=== PATIENT | female | born 1955 | race Caucasian/White ===

== ENCOUNTER 2016-07-23 05:07 | Inpatient (IN) | payer MEDICARE, MEDICAID ==
[2016-07-23] MEDS: Lactated Ringers 1,000 ML IV SCH ×2 (06:48→21:49)
[2016-07-23] MEDS ORDERED: Thrombin (Bovine) 5,000 Unit Kit ONE (07:00)
[2016-07-23] MEDS ORDERED: Bupivacaine 0.5%/EPINEPHrine 1:200,000 50 ML MDV ONE (07:00)
[2016-07-23] MEDS ORDERED: Povidone-Iodine 10% Soln 118.25 ML Bottle ONE (07:00)
[2016-07-23] MEDS ORDERED: fentaNYL 250 MCG/5 ML SDV ONE ×3 (07:20→14:15)
[2016-07-23] MEDS ORDERED: Rocuronium 50 MG/5 ML Vial ONE ×2 (07:21→12:26)
[2016-07-23] MEDS ORDERED: Dexamethasone 4 MG/ML SDV ONE (07:21)
[2016-07-23] MEDS ORDERED: Propofol 200 MG/20 ML SDV ONE (07:21)
[2016-07-23] MEDS ORDERED: Ondansetron 4 MG/2 ML SDV ONE ×2 (07:21→17:48)
[2016-07-23] MEDS ORDERED: Albuterol/Ipratropium 3.0-0.5 MG/3 ML Neb Soln NEB ONE (07:30)
[2016-07-23] MEDS ORDERED: Sodium Chloride 0.9% 10 ML ONE (07:31)
[2016-07-23] MEDS ORDERED: Lactated Ringers 1,000 ML IV SCH (08:00)
[2016-07-23] MEDS ORDERED: Tranexamic Acid 900 MG in Sodium Chloride 0.9% 50 ML IV SCH (08:30)
[2016-07-23] MEDS ORDERED: fentaNYL 100 MCG/2 ML SDV IVPUSH ONE (08:55)
[2016-07-23] MEDS ORDERED: Clindamycin Phosphate 900 MG in Sodium Chloride 0.9% 100 ML IV ONE (09:30)
[2016-07-23] MEDS: Tranexamic Acid 900 MG in Sodium Chloride 0.9% 50 ML IV SCH ×2 (12:00→15:50)
[2016-07-23] MEDS ORDERED: Phenylephrine 1% 10 MG/ML SDV ONE (13:10)
[2016-07-23] MEDS ORDERED: Lactated Ringers 1,000 ML ONE (14:07)
[2016-07-23] MEDS: fentaNYL 100 MCG/2 ML SDV IV PRN ×2 (15:58→16:31)
[2016-07-23] MEDS ORDERED: Naloxone 0.4 MG/ML SDV IVPUSH PRN ×2 (17:24)
[2016-07-23] MEDS ORDERED: diphenhydrAMINE 25 MG Cap PO PRN (17:24)
[2016-07-23] MEDS ORDERED: Magnesium Hydroxide 400 MG/5 ML Susp 30 ML Cup PO PRN ×2 (17:24→17:42)
[2016-07-23] MEDS ORDERED: Ondansetron 4 MG/2 ML SDV IVPUSH PRN (17:24)
[2016-07-23] MEDS ORDERED: Sennosides 8.6 MG Tab PO PRN (17:24)
[2016-07-23] MEDS ORDERED: Sodium Chloride 0.9% 10 ML Syringe FLUSH PRN ×2 (17:24→17:42)
[2016-07-23] MEDS ORDERED: Aluminum Hydroxide/Magnesium Hydroxide/Simethicone Susp 30 ML Cup PO PRN (17:24)
[2016-07-23] MEDS ORDERED: Zolpidem 5 MG Tab PO PRN (17:24)
[2016-07-23] MEDS ORDERED: Cyclobenzaprine 10 MG Tab PO PRN (17:30)
[2016-07-23] MEDS ORDERED: Lactase 9,000 Unit Tab PO PRN (17:30)
[2016-07-23] MEDS ORDERED: Albuterol/Ipratropium 3.0-0.5 MG/3 ML Neb Soln INH PRN (17:30)
[2016-07-23] MEDS ORDERED: Albuterol 8 GM Inhaler INH PRN (17:30)
[2016-07-23] MEDS ORDERED: VALACYCLOVIR 1000 MG PO PRN (17:30)
[2016-07-23] MEDS ORDERED: Albuterol/Ipratropium 4 GM Inhalation Spray INH PRN (17:30)
[2016-07-23] MEDS ORDERED: valACYclovir 1,000 MG Tab PO PRN (17:42)
[2016-07-23] MEDS: Ondansetron 4 MG/2 ML SDV IVPUSH PRN (19:14)
[2016-07-23] MEDS: HYDROmorphone 1 MG/ML Syringe IVPUSH PRN ×3 (19:15→23:29)
[2016-07-23] MEDS: Potassium Chloride 20 MEQ Tab.ER PO SCH (19:33)
[2016-07-23] MEDS ORDERED: Pravastatin 20 MG Tab PO SCH (21:00)
[2016-07-23] MEDS ORDERED: Metoprolol Succinate 25 MG Tab.ER PO SCH (21:00)
[2016-07-23] MEDS ORDERED: Non-Formulary Medication 1 Each (Potassium Chloride [Potassium Chloride] 1 TAB) PO SCH (21:00)
[2016-07-23] MEDS ORDERED: Nitrofurantoin Macrocrystal 50 MG Cap PO SCH (21:00)
[2016-07-23] MEDS ORDERED: Topiramate 25 MG Tab PO SCH (21:00)
[2016-07-23] MEDS ORDERED: Pramipexole 0.5 MG Tab PO SCH (21:00)
[2016-07-23] MEDS ORDERED: NITROFURANTOIN MACROCRYSTAL 100 MG PO SCH (21:00)
[2016-07-23] MEDS ORDERED: LORazepam 2 MG/ML MDV IVPUSH PRN (21:26)
[2016-07-23] MEDS: Triamcinolone Acetonide 0.1% Crm 15 GM Tube TOP SCH (21:52)
--- NOTE | 2016-07-23 22:40 | PCM.SN ---
- Free Text/Narrative Note: Time 2119. Call from 2 N. nursing patient with nausea and vomiting a; nausea and vomiting p; Ativan 1 mg by mouth every 6 when necessary nausea and vomiting. Continue present plan of care
--- NOTE | 2016-07-24 00:04 | OR ---
DATE OF PROCEDURE: 07/23/2016 PREOPERATIVE DIAGNOSES: Cervical stenosis C4-5, C5-6, and C6-7. POSTOPERATIVE DIAGNOSES: Cervical stenosis C4-5, C5-6, and C6-7. PROCEDURE: 1. Anterior cervical diskectomy and fusion. C4-5, C5-6 and C6-7. 2. Allograft placement C4 through C7. 3. Interbody placement at C4-5, C5-6, and C6-7. 4. Anterior cervical instrumentation at C4-5, C5-6, and C6-7. 5. Use of operating microscope. 6. Autograft from disk preparation used in interbody device COST ESTIMATING ENGINEER: AMY Monique. ANESTHESIA: General endotracheal intubation. FLUIDS: Lactated Ringer solution. ESTIMATED BLOOD LOSS: 20 mL. COMPLICATIONS: None. SPECIMEN: None. DISCHARGE DISPOSITION: Stable to PACU. INSTRUMENTATION: Globus three 14 x 16, 7 mm 7 degree implants with 16 mm screws x2 at C4-5, 14 mm screws x2 at C5-6 and 14 mm screws x2 at C6-7. INDICATION FOR THE PROCEDURE: The patient was seen preoperatively in the clinic. She had gone through many years of cervical pain, it was getting worse over the last six months. She was having increasing cervicalgia as well as bilateral radiculopathy and weakness. She tried extensive nonoperative treatment, which failed. Preoperative imaging confirmed the above-mentioned diagnosis. Risks and benefits of the procedure were explained to the patient and informed consent was obtained. DETAILS OF PROCEDURE: The patient was seen preoperatively by myself and the anesthesia staff in the preoperative holding area where the operative site was marked. She was brought to the operative suite by the anesthesia staff where general anesthesia was administered. Sterile Cardenas catheter was placed, which was taken out at the end of the case. Neuro monitoring leads were placed. All extremities were found to be well padded. The arms were tucked at the side. The shoulders were taped. Neuro monitoring leads were normal at baseline and normal throughout the case. The C-arm was brought in to ensure visualization prior to prepping and draping. The C-arm was then brought up, C-arm was draped sterilely, operating microscope was draped sterilely and the patient was then prepped and draped in a sterile manner. Time-out was called identifying the correct patient, the correct procedure, the correct site, and antibiotics were begun with an appropriate period of time. Lateral fluoroscopy was used to visualize the C6-7 level. An oblique incision was made medial to the sternocleidomastoid starting approximately at the C6 vertebral body and angling down over the C6-7 disk interspace just lateral to the vertebral body. This was carried down to the platysma. Bleeding was controlled with Bovie electrocautery and bipolar electrocautery. Weitlaner retractors were used. Sharp and blunt dissection were used to enter the prevertebral space. A Cloward retractor was used for traction, the C6-7 space was confirmed on lateral fluoroscopy. The soft tissues in the prevertebral space were then Bovie clear as well as releasing of the longus colli. The 40 mm retractors were used with the Shadow-Line cervical or tractor C6-7 was then confirmed again on fluoroscopy. I then removed any anterior osteophytes and then opened the disk space slightly with high-speed drill. I then used a 3.0 angled curette to remove any disk material as close as I could down to the level of the posterior vertebral lip. All disk spaces were collapsed. I did this and then I placed thrombin-soaked Gelfoam. I did this at every disk space releasing the mean. A Shadow-Line retractor was placed and the Cloward then replacing the Shadow-Line retractors. After this completed at C6-7, C5-6, and C4-5, I then went back down to the C6-7 level and then removed my operating loops and used the operating microscope. Under visualization with the operating microscope, I then used an intervertebral retractor to spread the intervertebral space and then using a high-speed drill, removed the posterior osteophytes off the vertebral body to the level of the PLL. The PLL was then released by using a three ring curette on the posterior aspect of the inferior vertebral body where it attaches and then I went out and repeated this on the opposite side of the intervertebral retractor, going back and forth until it was completely freed. I then used a 3-0 angled curette to go out from the foramina and then sweep laterally and then superiorly and then placed a nerve hook to confirm the foramina was open. I then placed a small amount of thrombin -soaked Gelfoam posteriorly to control any epidural bleeders. I then trialed with a 5, 6 and 7 implant. At the C6-7 level, I used a 0 degree, but at the C5-6 and C4-5 levels , I used a 7 degree implant. I placed my implant and then placed the screws. I repeated this at the C5- 6 and the C4-5 level using the operating microscope. I took final films to confirm good placement of all implants and screws. After that was done, I then copiously irrigated with Betadine infused irrigation. I then using an operating microscope made sure there were no extra bleeders. I did bipolar the medial aspect of the more inferior longus colli muscles I then applied FloSeal and allowed it to sit for 2 minutes and then swept the rest off with a damp Ray-Jeanie. I then inserted my drain in the prevertebral space carrying out the lateral aspect of the bone. I then closed the platysma with three 2-0 Vicryl sutures followed by 3- 0 Monocryl, followed by Steri-Strips and a sterile dressing with an OpSite. The patient was allowed to awaken from anesthesia. The Cardenas catheter was removed. Neuro monitoring leads were normal at the end of the procedure and removed and the patient was transferred to a hospital bed and taken to PACU in stable condition. Pascual Nieto DO /[id number] MTDD
[2016-07-24] MEDS: Ondansetron 4 MG/2 ML SDV IVPUSH PRN ×2 (00:21→09:33)
[2016-07-24] MEDS: Acetaminophen/oxyCODONE 325-5 MG Tab PO PRN ×4 (01:13→13:38)
[2016-07-24] MEDS ORDERED: Metoprolol Succinate 25 MG Tab.ER PO ONE (03:00)
[2016-07-24] MEDS: Hydrochlorothiazide 25 MG Tab PO SCH ×2 (05:00→08:53)
[2016-07-24] MEDS: Lisinopril 20 MG Tab PO SCH ×2 (05:00→08:53)
[2016-07-24] MEDS ORDERED: Bupivacaine 0.5% 30 ML SDV ONE (07:12)
[2016-07-24] MEDS ORDERED: Pantoprazole 40 MG Tab.CR PO SCH (07:30)
[2016-07-24] MEDS: Triamcinolone Acetonide 0.1% Crm 15 GM Tube TOP SCH ×2 (08:54→16:19)
[2016-07-24] MEDS: Potassium Chloride 20 MEQ Tab.ER PO SCH (08:59)
[2016-07-24] MEDS ORDERED: PRAVASTATIN SODIUM 40 MG PO SCH (09:00)
[2016-07-24 11:06] VITALS: BP 139/98
--- NOTE | 2016-07-24 13:47 | PCM.DCSUM1 ---
Discharge Summary - Hospital Course Free Text/Narrative:: Makayla is a 60 year old female who is POD 1 from a cervical neck fusion of L4- L5, L5-L6, L6-L7. She is doing well. Pain is controlled. Drain was pulled with minimal drainage. She is ambulating well. BP is controlled. She is otherwise good. - Discharge Data Discharge Date: 07/24/16 Discharge Disposition: Home, Self-Care 01 Condition: Good - Patient Summary/Data Consults: Consultations 07/23/16 17:25 OT Evaluation and Treatment [CONS] Routine Please Evaluate and Treat. OT Reason for Consult: Strengthening This query below is only for informational purposes and is not editable. PT Evaluation and Treatment [CONS] Routine Please Evaluate and Treat. PT Reason for Consult: Strengthening This query below is only for informational purposes and is not editable. Recommended Follow-up Testing/Procedures: She is to follow up with Ortho in 2 weeks. - Patient Instructions Diet: Heart Healthy Diet, Usual Diet as Tolerated Activity: Apply Ice, As Tolerated, Cough & Deep Breathe, No Lifting Over 10 Pounds Driving: Do Not Drive Showering/Bathing: May Shower Wound/Incision Care: Keep Operative Site/Wound Site Clean and Dry, Change Dressing Daily Notify Provider of: Fever, Increased Pain, Swelling and Redness, Drainage - Discharge Plan Prescriptions/Med Rec: Acetaminophen/oxyCODONE [Percocet 325-5 MG] 2 tab PO Q4H PRN #90 tablet PRN Reason: Pain Sennosides [Senna] 8.6 mg PO DAILY #90 tablet Home Medications: Home Meds Albuterol [Ventolin HFA] 2 puff INH QID PRN 06/27/16 [History] Albuterol/Ipratropium [Combivent Respimat] 1 inh INH QID PRN 06/27/16 [History] Albuterol/Ipratropium [DuoNeb 3.0-0.5 MG/3 ML] 1 inh INH Q6H PRN 06/27/16 [ History] Cholecalciferol (Vitamin D3) [Vitamin D3] 1 cap PO DAILY 06/27/16 [History] Cyclobenzaprine [Flexeril] 1 tab PO TID PRN MDD 3 06/27/16 [History] Lactase [Lactase Fast Acting] 1 tab PO Q4HWA PRN 06/27/16 [History] Lisinopril/Hydrochlorothiazide [Lisinopril-Hctz 20-25 mg Tab] 1 tab PO DAILY 07/12 [History] Metoprolol Succinate [Toprol XL] 1 tab PO BEDTIME 06/27/16 [History] Pantoprazole [Protonix] 1 tab PO DAILY 06/27/16 [History] Potassium Chloride 1 tab PO BID 06/27/16 [History] Topiramate [Topamax] 1 tab PO BEDTIME 06/27/16 [History] Triamcinolone Acetonide [Kenalog 0.1% Crm] 1 applic TOP TID 06/27/16 [History] Varenicline [Chantix] 1 tab PO BID 06/27/16 [History] diphenhydrAMINE HCl [Benadryl] 25 - 50 mg PO QID PRN 06/27/16 [History] valACYclovir [Valtrex] 1,000 mg PO DAILY PRN 06/27/16 [History] ALPRAZolam [Alprazolam] 0.5 - 1 mg PO TID PRN 07/22/16 [History] Nitrofurantoin Macrocrystal [Macrodantin] 100 mg PO BID 07/22/16 [History] Pravastatin Sodium [Pravastatin (Pravachol)] 40 mg PO DAILY 07/22/16 [History] traMADol [Ultram] 50 mg PO Q4HR PRN 07/23/16 [History] Acetaminophen/oxyCODONE [Percocet 325-5 MG] 2 tab PO Q4H PRN #90 tablet [Rx] Sennosides [Senna] 8.6 mg PO DAILY #90 tablet 07/24/16 [Rx] Referrals: Pascual Nieto DO [Physician] - (She needs to follow up in 2 weeks with ortho. ) - Patient Data Vitals - Most Recent: Last Vital Signs Temp 37.1 C 07/24/16 11:05 Pulse 103 H 07/24/16 11:05 Resp 16 07/24/16 11:05 BP 139/98 H 07/24/16 11:05 Pulse Ox 92 L 07/24/16 13:00 Weight - Most Recent: 203 lb 2.989 oz I&O - Last 24 hours: Intake & Output 02/28/17 03/01/17 03/01/17 22:59 06:59 14:59 Intake Total 1050 1340 Output Total 1466 670 Balance -415 670 Med Orders - Current: Current Medications Al Hydroxide/Mg Hydroxide (Mag-Al Plus) 30 ml PO Q4H PRN PRN Reason: Indigestion Albuterol (Ventolin Hfa) 0 gm INH QID PRN PRN Reason: Shortness of Breath Albuterol/Ipratropium (Combivent Respimat) 0 gm INH QID PRN PRN Reason: Shortness of Breath Albuterol/Ipratropium (Duoneb 3.0-0.5 Mg/3 Ml) 3 ml INH Q6H PRN PRN Reason: Shortness of Breath Cyclobenzaprine HCl (Flexeril) 10 mg PO TID PRN PRN Reason: Spasms Last Admin: 07/24/16 11:46 Dose: 10 mg Diazepam (Valium) 5 mg IVPUSH Q6H PRN PRN Reason: Spasms Diphenhydramine HCl (Benadryl) 25 mg PO Q4H PRN PRN Reason: Itching Hydrochlorothiazide (Hydrochlorothiazide) 25 mg PO DAILY [facility] Last Admin: 07/24/16 08:53 Dose: Not Given Hydromorphone HCl (Dilaudid) 1 mg IVPUSH Q2H PRN PRN Reason: Pain Last Admin: 07/23/16 23:29 Dose: 1 mg Lactated Ringer's (Ringers, Lactated) 1,000 mls @ 100 mls/hr IV ASDIRECTED [facility] Last Admin: 07/23/16 21:49 Dose: 100 mls/hr Lactase (Lactaid Fast Act) 1 unit PO Q4HWA PRN PRN Reason: gas bloating Lisinopril (Prinivil) 20 mg PO DAILY [facility] Last Admin: 07/24/16 08:53 Dose: Not Given Lorazepam (Ativan) 0.5 - 1 mg IVPUSH Q6H PRN PRN Reason: Nausea Last Admin: 07/23/16 21:48 Dose: 0.5 mg Magnesium Hydroxide (Milk Of Magnesia) 30 ml PO BID PRN PRN Reason: Constipation Last Admin: 07/24/16 09:00 Dose: 30 ml Metoprolol Succinate (Toprol Xl) 25 mg PO BEDTIME [facility] Last Admin: 07/23/16 22:11 Dose: Not Given Ondansetron HCl (Zofran) 8 mg IVPUSH Q4H PRN PRN Reason: Nausea/Vomiting Last Admin: 07/24/16 09:33 Dose: 8 mg Oxycodone/Acetaminophen (Percocet 325-5 Mg) 2 tab PO Q4H PRN PRN Reason: Pain Last Admin: 07/24/16 13:38 Dose: 2 tab Pantoprazole Sodium (Protonix) 40 mg PO DAILY@0730 [facility] Last Admin: 07/24/16 08:56 Dose: 40 mg Potassium Chloride (Klor-Con M20) 20 meq PO BIDMEALS [facility] Last Admin: 07/24/16 08:59 Dose: 20 meq Pramipexole Dihydrochloride (Mirapex) 0.5 mg PO BEDTIME [facility] Last Admin: 07/23/16 22:12 Dose: Not Given Pravastatin Sodium (Pravachol) 40 mg PO BEDTIME [facility] Last Admin: 07/23/16 22:12 Dose: Not Given Senna (Senna) 8.6 mg PO BID PRN PRN Reason: Constipation Sodium Chloride (Saline Flush) 10 ml FLUSH ASDIRECTED PRN PRN Reason: Keep Vein Open Topiramate (Topamax) 25 mg PO BEDTIME [facility] Last Admin: 07/23/16 22:11 Dose: Not Given Triamcinolone Acetonide (Triamcinolone Acetonide 0.1% Crm) 0 gm TOP TID [facility] Last Admin: 07/24/16 08:54 Dose: Not Given Valacyclovir HCl (Valtrex) 1,000 mg PO DAILY PRN PRN Reason: herpes outbreak Varenicline (Chantix) 1 mg PO BIDMEALS [facility] Last Admin: 07/24/16 08:59 Dose: 1 mg Zolpidem Tartrate (Ambien) 5 mg PO BEDTIME PRN PRN Reason: Sleep Discontinued Medications Albuterol/Ipratropium (Duoneb 3.0-0.5 Mg/3 Ml) 3 ml NEB ONETIME ONE Stop: 07/23/16 07:31 Last Admin: 07/23/16 07:22 Dose: 3 ml Bupivacaine HCl (Marcaine 0.5%) Confirm Administered Dose 30 ml .ROUTE .STK-MED ONE Stop: 07/24/16 07:13 Bupivacaine HCl/Epinephrine Bitart (Marcaine 0.5%/Epinephrine 1:200,000) Confirm Administered Dose 50 ml .ROUTE .STK-MED ONE Stop: 07/23/16 07:01 Dexamethasone (Dexamethasone) Confirm Administered Dose 4 mg .ROUTE .STK-MED ONE Stop: 07/23/16 07:22 Diazepam (Valium) 5 mg IVPUSH ONETIME ONE Stop: 07/23/16 16:11 Last Admin: 07/23/16 16:21 Dose: 5 mg Fentanyl (Sublimaze) Confirm Administered Dose 250 mcg .ROUTE .STK-MED ONE Stop: 07/23/16 07:21 Fentanyl (Sublimaze) 50 mcg IVPUSH ONETIME ONE Stop: 07/23/16 08:56 Last Admin: 07/23/16 08:58 Dose: 50 mcg Fentanyl (Sublimaze) Confirm Administered Dose 250 mcg .ROUTE .ST-MED ONE Stop: 07/23/16 12:48 Fentanyl (Sublimaze) Confirm Administered Dose 250 mcg .ROUTE .ST-MED ONE Stop: 07/23/16 14:16 Fentanyl (Sublimaze) 50 - 100 mcg IV ASDIRECTED PRN PRN Reason: PAIN Stop: 07/23/16 16:30 Last Admin: 07/23/16 16:31 Dose: 50 mcg Clindamycin Phosphate 900 mg/ (Sodium Chloride) 106 mls @ 200 mls/hr IV ONETIME ONE Stop: 07/23/16 10:01 Last Admin: 07/23/16 11:44 Dose: 200 mls/hr Lactated Ringer's (Ringers, Lactated) 1,000 mls @ 100 mls/hr IV ASDIRECTED ANITA Sodium Chloride (Normal Saline) Confirm Administered Dose 10 mls @ as directed .ROUTE .STK-MED ONE Stop: 07/23/16 07:32 Tranexamic Acid 900 mg/ Sodium (Chloride) 59 mls @ 236 mls/hr IV Q3H [facility]ITA Stop: 07/23/16 14:44 Last Admin: 07/23/16 15:50 Dose: 236 mls/hr Lactated Ringer's (Ringers, Lactated) Confirm Administered Dose 1,000 mls @ as directed .ROUTE .STK-MED ONE Stop: 07/23/16 14:08 Clindamycin Phosphate 600 mg/ (Sodium Chloride) 54 mls @ 100 mls/hr IV Q8H ANITA Stop: 07/24/16 04:33 Last Admin: 07/24/16 03:26 Dose: 100 mls/hr Magnesium Hydroxide (Milk Of Magnesia) 30 ml PO BID PRN PRN Reason: Constipation Metoprolol Succinate (Toprol Xl) 25 mg PO ONETIME ONE Stop: 07/24/16 03:01 Last Admin: 07/24/16 03:24 Dose: 25 mg Naloxone HCl (Narcan) 0.2 mg IVPUSH ONETIME PRN PRN Reason: Oversedation Stop: 07/23/16 17:25 Naloxone HCl (Narcan) 0.2 mg IVPUSH ONETIME PRN PRN Reason: Oversedation Stop: 07/23/16 17:25 Nitrofurantoin Macrocrystals (Macrodantin) 100 mg PO BID [facility] Non-Formulary Medication (Lisinopril/Hydrochlorothiazide [Lisinopril-Hctz 20-25 Mg Tab]) 1 tab PO DAILY [facility] Non-Formulary Medication (Nitrofurantoin Macrocrystal [Macrodantin]) 100 mg PO BID [facility] Non-Formulary Medication (Potassium Chloride [Potassium Chloride]) 1 tab PO BID [facility] Non-Formulary Medication (Pravastatin Sodium [Pravastatin (Pravachol)]) 40 mg PO DAILY [facility] Non-Formulary Medication (Valacyclovir [Valtrex]) 1,000 mg PO DAILY PRN PRN Reason: herpes outbreak Ondansetron HCl (Zofran) Confirm Administered Dose 4 mg .ROUTE .STK-MED ONE Stop: 07/23/16 07:22 Ondansetron HCl (Zofran) 8 mg IVPUSH Q4H PRN PRN Reason: Nausea/Vomiting Ondansetron HCl (Zofran) Confirm Administered Dose 4 mg .ROUTE .STK-MED ONE Stop: 07/23/16 17:49 Last Admin: 07/23/16 17:54 Dose: 4 mg Phenylephrine HCl (Valentin-Synephrine) Confirm Administered Dose 10 mg .ROUTE .STK- MED ONE Stop: 07/23/16 13:11 Povidone Iodine (Betadine 10% Soln) Confirm Administered Dose 1 ml .ROUTE .STK- MED ONE Stop: 07/23/16 07:01 Propofol (Diprivan 20 Ml) Confirm Administered Dose 200 mg .ROUTE .STK-MED ONE Stop: 07/23/16 07:22 Rocuronium [place] (Zemuron) Confirm Administered Dose 50 mg .ROUTE .STK-MED ONE Stop: 07/23/16 07:22 Rocuronium [place] (Zemuron) Confirm Administered Dose 50 mg .ROUTE .STK-MED ONE Stop: 07/23/16 12:27 Sodium Chloride (Saline Flush) 10 ml FLUSH ASDIRECTED PRN PRN Reason: Keep Vein Open Thrombin (Thrombin-Jmi) Confirm Administered Dose 10,000 unit .ROUTE .STK-MED ONE Stop: 07/23/16 07:01 Last Admin: 07/23/16 11:50 Dose: 10,000 unit *Q Meaningful Use (DIS) - VTE *Q VTE Criteria *Q: - Stroke *Q Stroke Criteria *Q: - AMI *Q AMI Criteria *Q:
--- NOTE | 2016-07-24 16:06 | PCM.PN ---
- General Info Date of Service: 07/24/16 Functional Status: Reports: pain controlled, tolerating diet, ambulating - Review of Systems General: Denies: weakness Systems Review Comment:: patient had trouble with moderate blood pressure elevation overnight with systolic blood pressure of 170 and diastolic pressures greater than 100. mild headache at that time. blood pressures have trended down and she's feeling much better today. She has minimal pain from her surgery. No numbness or tingling in her arms. She feels much better this morning. - Patient Data Vitals - most recent: Last Vital Signs Temp 37.1 C 07/24/16 11:05 Pulse 103 H 07/24/16 11:05 Resp 16 07/24/16 11:05 BP 139/98 H 07/24/16 11:05 Pulse Ox 92 L 07/24/16 13:00 Weight - most recent: 92.164 kg I&O - last 24 hours: Intake & Output 07/24/16 07/24/16 07/24/16 06:59 14:59 22:59 Intake Total 1340 2587 Output Total 670 2550 Balance 670 37 Med Orders - Current: Current Medications Al Hydroxide/Mg Hydroxide (Mag-Al Plus) 30 ml PO Q4H PRN PRN Reason: Indigestion Albuterol (Ventolin Hfa) 0 gm INH QID PRN PRN Reason: Shortness of Breath Albuterol/Ipratropium (Combivent Respimat) 0 gm INH QID PRN PRN Reason: Shortness of Breath Albuterol/Ipratropium (Duoneb 3.0-0.5 Mg/3 Ml) 3 ml INH Q6H PRN PRN Reason: Shortness of Breath Cyclobenzaprine HCl (Flexeril) 10 mg PO TID PRN PRN Reason: Spasms Last Admin: 07/24/16 11:46 Dose: 10 mg Diazepam (Valium) 5 mg IVPUSH Q6H PRN PRN Reason: Spasms Diphenhydramine HCl (Benadryl) 25 mg PO Q4H PRN PRN Reason: Itching Hydrochlorothiazide (Hydrochlorothiazide) 25 mg PO DAILY [facility] Last Admin: 07/24/16 08:53 Dose: Not Given Hydromorphone HCl (Dilaudid) 1 mg IVPUSH Q2H PRN PRN Reason: Pain Last Admin: 07/23/16 23:29 Dose: 1 mg Lactated Ringer's (Ringers, Lactated) 1,000 mls @ 100 mls/hr IV ASDIRECTED [facility] Last Admin: 07/23/16 21:49 Dose: 100 mls/hr Lactase (Lactaid Fast Act) 1 unit PO Q4HWA PRN PRN Reason: gas bloating Lisinopril (Prinivil) 20 mg PO DAILY [facility] Last Admin: 07/24/16 08:53 Dose: Not Given Lorazepam (Ativan) 0.5 - 1 mg IVPUSH Q6H PRN PRN Reason: Nausea Last Admin: 07/23/16 21:48 Dose: 0.5 mg Magnesium Hydroxide (Milk Of Magnesia) 30 ml PO BID PRN PRN Reason: Constipation Last Admin: 07/24/16 09:00 Dose: 30 ml Metoprolol Succinate (Toprol Xl) 25 mg PO BEDTIME [facility] Last Admin: 07/23/16 22:11 Dose: Not Given Ondansetron HCl (Zofran) 8 mg IVPUSH Q4H PRN PRN Reason: Nausea/Vomiting Last Admin: 07/24/16 09:33 Dose: 8 mg Oxycodone/Acetaminophen (Percocet 325-5 Mg) 2 tab PO Q4H PRN PRN Reason: Pain Last Admin: 07/24/16 13:38 Dose: 2 tab Pantoprazole Sodium (Protonix) 40 mg PO DAILY@0730 [facility] Last Admin: 07/24/16 08:56 Dose: 40 mg Potassium Chloride (Klor-Con M20) 20 meq PO BIDMEALS [facility] Last Admin: 07/24/16 08:59 Dose: 20 meq Pramipexole Dihydrochloride (Mirapex) 0.5 mg PO BEDTIME [facility] Last Admin: 07/23/16 22:12 Dose: Not Given Pravastatin Sodium (Pravachol) 40 mg PO BEDTIME [facility] Last Admin: 07/23/16 22:12 Dose: Not Given Senna (Senna) 8.6 mg PO BID PRN PRN Reason: Constipation Sodium Chloride (Saline Flush) 10 ml FLUSH ASDIRECTED PRN PRN Reason: Keep Vein Open Topiramate (Topamax) 25 mg PO BEDTIME [facility] Last Admin: 07/23/16 22:11 Dose: Not Given Triamcinolone Acetonide (Triamcinolone Acetonide 0.1% Crm) 0 gm TOP TID [facility] Last Admin: 07/24/16 08:54 Dose: Not Given Valacyclovir HCl (Valtrex) 1,000 mg PO DAILY PRN PRN Reason: herpes outbreak Varenicline (Chantix) 1 mg PO BIDMEALS [facility] Last Admin: 07/24/16 08:59 Dose: 1 mg Zolpidem Tartrate (Ambien) 5 mg PO BEDTIME PRN PRN Reason: Sleep Discontinued Medications Albuterol/Ipratropium (Duoneb 3.0-0.5 Mg/3 Ml) 3 ml NEB ONETIME ONE Stop: 07/23/16 07:31 Last Admin: 07/23/16 07:22 Dose: 3 ml Bupivacaine HCl (Marcaine 0.5%) Confirm Administered Dose 30 ml .ROUTE .STK-MED ONE Stop: 07/24/16 07:13 Bupivacaine HCl/Epinephrine Bitart (Marcaine 0.5%/Epinephrine 1:200,000) Confirm Administered Dose 50 ml .ROUTE .STK-MED ONE Stop: 07/23/16 07:01 Dexamethasone (Dexamethasone) Confirm Administered Dose 4 mg .ROUTE .STK-MED ONE Stop: 07/23/16 07:22 Diazepam (Valium) 5 mg IVPUSH ONETIME ONE Stop: 07/23/16 16:11 Last Admin: 07/23/16 16:21 Dose: 5 mg Fentanyl (Sublimaze) Confirm Administered Dose 250 mcg .ROUTE .STK-MED ONE Stop: 07/23/16 07:21 Fentanyl (Sublimaze) 50 mcg IVPUSH ONETIME ONE Stop: 07/23/16 08:56 Last Admin: 07/23/16 08:58 Dose: 50 mcg Fentanyl (Sublimaze) Confirm Administered Dose 250 mcg .ROUTE .STK-MED ONE Stop: 07/23/16 12:48 Fentanyl (Sublimaze) Confirm Administered Dose 250 mcg .ROUTE .STK-MED ONE Stop: 07/23/16 14:16 Fentanyl (Sublimaze) 50 - 100 mcg IV ASDIRECTED PRN PRN Reason: PAIN Stop: 07/23/16 16:30 Last Admin: 07/23/16 16:31 Dose: 50 mcg Clindamycin Phosphate 900 mg/ (Sodium Chloride) 106 mls @ 200 mls/hr IV ONETIME ONE Stop: 07/23/16 10:01 Last Admin: 07/23/16 11:44 Dose: 200 mls/hr Lactated Ringer's (Ringers, Lactated) 1,000 mls @ 100 mls/hr IV ASDIRECTED [facility] Sodium Chloride (Normal Saline) Confirm Administered Dose 10 mls @ as directed .ROUTE .[facility] ONE Stop: 07/23/16 07:32 Tranexamic Acid 900 mg/ Sodium (Chloride) 59 mls @ 236 mls/hr IV Q3H [facility] Stop: 07/23/16 14:44 Last Admin: 07/23/16 15:50 Dose: 236 mls/hr Lactated Ringer's (Ringers, Lactated) Confirm Administered Dose 1,000 mls @ as directed .ROUTE .[facility] ONE Stop: 07/23/16 14:08 Clindamycin Phosphate 600 mg/ (Sodium Chloride) 54 mls @ 100 mls/hr IV Q8H [facility] Stop: 07/24/16 04:33 Last Admin: 07/24/16 03:26 Dose: 100 mls/hr Magnesium Hydroxide (Milk Of Magnesia) 30 ml PO BID PRN PRN Reason: Constipation Metoprolol Succinate (Toprol Xl) 25 mg PO ONETIME ONE Stop: 07/24/16 03:01 Last Admin: 07/24/16 03:24 Dose: 25 mg Naloxone HCl (Narcan) 0.2 mg IVPUSH ONETIME PRN PRN Reason: Oversedation Stop: 07/23/16 17:25 Naloxone HCl (Narcan) 0.2 mg IVPUSH ONETIME PRN PRN Reason: Oversedation Stop: 07/23/16 17:25 Nitrofurantoin Macrocrystals (Macrodantin) 100 mg PO BID [facility] Non-Formulary Medication (Lisinopril/Hydrochlorothiazide [Lisinopril-Hctz 20-25 Mg Tab]) 1 tab PO DAILY [facility] Non-Formulary Medication (Nitrofurantoin Macrocrystal [Macrodantin]) 100 mg PO BID [facility] Non-Formulary Medication (Potassium Chloride [Potassium Chloride]) 1 tab PO BID [facility] Non-Formulary Medication (Pravastatin Sodium [Pravastatin (Pravachol)]) 40 mg PO DAILY [facility] Non-Formulary Medication (Valacyclovir [Valtrex]) 1,000 mg PO DAILY PRN PRN Reason: herpes outbreak Ondansetron HCl (Zofran) Confirm Administered Dose 4 mg .ROUTE .STK-MED ONE Stop: 07/23/16 07:22 Ondansetron HCl (Zofran) 8 mg IVPUSH Q4H PRN PRN Reason: Nausea/Vomiting Ondansetron HCl (Zofran) Confirm Administered Dose 4 mg .ROUTE .STK-MED ONE Stop: 07/23/16 17:49 Last Admin: 07/23/16 17:54 Dose: 4 mg Phenylephrine HCl (Valentin-Synephrine) Confirm Administered Dose 10 mg .ROUTE .STK- MED ONE Stop: 07/23/16 13:11 Povidone Iodine (Betadine 10% Soln) Confirm Administered Dose 1 ml .ROUTE .STK- MED ONE Stop: 07/23/16 07:01 Propofol (Diprivan 20 Ml) Confirm Administered Dose 200 mg .ROUTE .STK-MED ONE Stop: 07/23/16 07:22 Rocuronium [place] (Zemuron) Confirm Administered Dose 50 mg .ROUTE .STK-MED ONE Stop: 07/23/16 07:22 Rocuronium [place] (Zemuron) Confirm Administered Dose 50 mg .ROUTE .STK-MED ONE Stop: 07/23/16 12:27 Sodium Chloride (Saline Flush) 10 ml FLUSH ASDIRECTED PRN PRN Reason: Keep Vein Open Thrombin (Thrombin-Jmi) Confirm Administered Dose 10,000 unit .ROUTE .STK-MED ONE Stop: 07/23/16 07:01 Last Admin: 07/23/16 11:50 Dose: 10,000 unit - Exam Quality Assessment: No: supplemental oxygen General: alert, oriented, cooperative, no acute distress HEENT: Other (dry intact surgical dressing right anterior lateral neck) Lungs: Clear to auscultation, Normal respiratory effort Cardiovascular: regular rate, regular rhythm Extremities: no edema Peripheral Pulses: 2+: radial (L), radial (R), dorsalis pedis (L), dorsalis pedis (R) Wound/Incisions: dressing dry and intact, no drainage Psy/Mental Status: alert, normal affect - Problem List & Annotations (1) Essential hypertension SNOMED Code(s): 16067033 Code(s): I10 - ESSENTIAL (PRIMARY) HYPERTENSION Status: Acute Current Visit: Yes - Problem List Review Problem List Initiated/Reviewed/Updated: Yes - Plan Plan:: ASSESSMENT AND PLAN - Cervical spinal stenosis status post fusion and discectomy - clinically doing quite well. -Postop cares per surgical team Essential hypertension - Some elevation of blood pressures overnight but they are trending down at this time. Clinically patient is doing well. -Continue all medications Jeffery Hare M.D.
== END 2016-07-24 14:00 | disposition home or self-care (01) | DRG 473 ==
LOC: JP.SDS 05:07 → JP.MS 05:07 → EDSTATUS 09:30 → JP.MS 15:00
PROVIDERS: ADMIT Orthopaedic Surgery; ATTEND Orthopaedic Surgery
PROC: 0PH304Z Insertion of Internal Fixation Device into Cervical Vertebra, Open Approach (ICD-10-PCS; principal; 2016-07-23)
PROC: 0RG2070 Fusion of 2 or more Cervical Vertebral Joints with Autologous Tissue Substitute, Anterior Approach, Anterior Column, Open Approach (ICD-10-PCS; principal; 2016-07-23)
PROC: 0RG20K0 Fusion of 2 or more Cervical Vertebral Joints with Nonautologous Tissue Substitute, Anterior Approach, Anterior Column, Open Approach (ICD-10-PCS; principal; 2016-07-23)
PROC: 0RG20A0 Fusion of 2 or more Cervical Vertebral Joints with Interbody Fusion Device, Anterior Approach, Anterior Column, Open Approach (ICD-10-PCS; principal; 2016-07-23)
PROC: 0RB30ZZ Excision of Cervical Vertebral Disc, Open Approach (ICD-10-PCS; principal; 2016-07-23)
DX: M48.02 Spinal stenosis, cervical region (principal); I10 Essential (primary) hypertension; G89.4 Chronic pain syndrome; M79.7 Fibromyalgia; G47.33 Obstructive sleep apnea (adult) (pediatric); K21.9 Gastro-esophageal reflux disease without esophagitis; K44.9 Diaphragmatic hernia without obstruction or gangrene; J44.9 Chronic obstructive pulmonary disease, unspecified; E78.5 Hyperlipidemia, unspecified; F41.9 Anxiety disorder, unspecified; Z87.891 Personal history of nicotine dependence; K59.09 Other constipation; R33.9 Retention of urine, unspecified; Z87.820 Personal history of traumatic brain injury; Z79.891 Long term (current) use of opiate analgesic; Z79.899 Other long term (current) drug therapy; Z51.81 Encounter for therapeutic drug level monitoring; Z88.6 Allergy status to analgesic agent; Z91.030 Bee allergy status; Z91.040 Latex allergy status; Z88.5 Allergy status to narcotic agent; Z88.0 Allergy status to penicillin; Z91.048 Other nonmedicinal substance allergy status
CPT/HCPCS: 36415; 76001; 86850; 86900; 86901; 94762; 97162-GP; 97166-GO; 97530-GP; 97535-GP; A9270-GY; C1713; J1100; J1170; J2060; J2370; J2405; J2704; J3010; J3360; J7030; J7050; J7120; J7620; S0077

== ENCOUNTER 2017-09-23 14:27 | Emergency (ER) | payer MEDICARE, MEDICAID ==
[2017-09-23] MEDS ORDERED: Sodium Chloride 0.9% 10 ML Syringe FLUSH PRN (15:32)
[2017-09-23] MEDS ORDERED: methylPREDNISolone Sodium Succinate 125 MG/2 ML SDV IVPUSH ONE (15:33)
--- NOTE | 2017-09-23 15:34 | EDM.PDOC ---
ED HPI GENERAL MEDICAL PROBLEM - General Chief Complaint: Respiratory Problem Stated Complaint: COPD/ASTHMA SOB Time Seen by Provider: 09/23/17 15:34 Source of Information: Reports: Patient History Limitations: Reports: No Limitations - History of Present Illness INITIAL COMMENTS - FREE TEXT/NARRATIVE: pt has been ill for the past 4-5 days, She is very wheezy. Her nebulizer treatmnts do not hlp and she is increasely sob. Onset: Gradual, Other ( several days. ) Duration: Day(s): Location: Reports: Chest Associated Symptoms: Reports: Shortness of Breath Shoulder Pain Score (Numeric/FACES): 8 - Related Data Allergies Allergy/AdvReac Type Severity Reaction Status Date / Time Latex, Natural Rubber Allergy Severe Anaphylactic Verified 09/23/17 14:59 Shock Penicillins Allergy Severe double Verified 09/23/17 14:59 vision adhesive tape Allergy Itching Verified 09/23/17 14:59 aspirin Allergy Rash Verified 09/23/17 14:59 azithromycin Allergy Hives Verified 09/23/17 14:59 codeine Allergy Other Verified 09/23/17 14:59 wasp venom Allergy Severe Anaphylactic Uncoded 09/23/17 14:59 Shock perfumes Allergy Bronchospas Uncoded 09/23/17 14:59 ms Home Meds: Home Meds Albuterol/Ipratropium [Combivent Respimat] 1 inh INH QID PRN 06/27/16 [History] Albuterol/Ipratropium [DuoNeb 3.0-0.5 MG/3 ML] 1 inh INH Q6H PRN 06/27/16 [ History] Cholecalciferol (Vitamin D3) [Vitamin D3] 1 cap PO DAILY 06/27/16 [History] Lisinopril/Hydrochlorothiazide [Lisinopril-Hctz 20-25 mg Tab] 1 tab PO DAILY 07/12 [History] Metoprolol Succinate [Toprol XL] 25 mg PO BEDTIME 06/27/16 [History] Pantoprazole [ProTONIX] 1 tab PO DAILY 06/27/16 [History] Potassium Chloride 1 tab PO BID 06/27/16 [History] Topiramate [Topamax] 1 tab PO BEDTIME 06/27/16 [History] Triamcinolone Acetonide [Kenalog 0.1% Crm] 1 applic TOP TID 06/27/16 [History] Varenicline [Chantix] 1 tab PO BID 06/27/16 [History] diphenhydrAMINE HCl [Benadryl] 25 - 50 mg PO QID PRN 06/27/16 [History] valACYclovir [Valtrex] 1,000 mg PO DAILY PRN 06/27/16 [History] Nitrofurantoin Macrocrystal [Macrodantin] 100 mg PO BID PRN 07/22/16 [History] Pravastatin Sodium [Pravastatin (Pravachol)] 40 mg PO DAILY 07/22/16 [History] Sennosides [Senna] 8.6 mg PO DAILY #90 tablet 07/24/16 [Rx] ALPRAZolam [Alprazolam] 0.5 mg PO BEDTIME 09/23/17 [History] Albuterol [Ventolin HFA] 1 - 2 puff INH Q4HR 09/23/17 [History] Aspirin 325 mg PO DAILY 09/23/17 [History] Calcium Carbonate/Vitamin D3 [Calcium 600 + Vit D 200] 1 each PO DAILY 09/23/17 [History] Diclofenac Sodium [Voltaren] 75 mg PO BIDMEALS 09/23/17 [History] Fluticasone/Salmeterol [Advair 100-50] 1 puff INH BID 09/23/17 [History] Gabapentin [Neurontin] 300 mg PO TID 09/23/17 [History] Lidocaine [Aspercreme] 1 each TP ASDIRECTED PRN 09/23/17 [History] Pramipexole Di-HCl [Mirapex] 0.5 mg PO BEDTIME 09/23/17 [History] Ranitidine HCl [Zantac 75] 150 mg PO BID 09/23/17 [History] diphenhydrAMINE [Benadryl] 25 mg PO ASDIRECTED 09/23/17 [History] traMADol [Ultram] 50 mg PO Q6H PRN 09/23/17 [History] Past Medical History HEENT History: Reports: Allergic Rhinitis, Impaired Vision Other HEENT History: double vision from head injury Cardiovascular History: Reports: High Cholesterol, Hypertension Respiratory History: Reports: Asthma, COPD Gastrointestinal History: Reports: Colon Polyp, Diverticulosis, GERD Genitourinary History: Reports: Retention, Urinary, Other (See Below) Other Genitourinary History: catherterizes self three times a day due to urine retention, according to patient LEVELER History: Reports: , Spontaneous , Other (See Below) Other OB/BYN History: stillborn Musculoskeletal History: Reports: Back Pain, Chronic, Fracture, Neck Pain, Chronic Other Musculoskeletal History: Cervical disk fusion Neurological History: Reports: Brain Injury, Concussion, Headaches, Chronic, Head Trauma, Migraines Psychiatric History: Reports: Anxiety Hematologic History: Reports: Anemia - Infectious Disease History Infectious Disease History: Reports: C-Difficile, Herpes, Measles - Past Surgical History HEENT Surgical History: Reports: Oral Surgery, Tonsillectomy Respiratory Surgical History: Reports: None GI Surgical History: Reports: Colonoscopy Female Surgical History: Reports: Section Neurological Surgical History: Reports: C-Spine Musculoskeletal Surgical History: Reports: Arthroscopic Knee, Carpal Tunnel Dermatological Surgical History: Reports: Skin Biopsy Social & Family History - Family History Family Medical History: Noncontributory - Tobacco Use Smoking Status *Q: Current Some Day Smoker Years of Tobacco use: 50 Packs/Tins Daily: 1 Used Tobacco, but Quit: Yes Month/Year Tobacco Last Used: 2017 - Caffeine Use Caffeine Use: Reports: Coffee - Recreational Drug Use Recreational Drug Use: No ED ROS GENERAL - Review of Systems Review Of Systems: See Below Constitutional: Reports: No Symptoms HEENT: Reports: No Symptoms Respiratory: Reports: Shortness of Breath, Wheezing, Cough Cardiovascular: Reports: Other (pt has alot of pain in her shoulder areas. ) Endocrine: Reports: No Symptoms GI/Abdominal: Reports: No Symptoms : Reports: No Symptoms Musculoskeletal: Reports: No Symptoms Skin: Reports: No Symptoms ED EXAM, GENERAL - Physical Exam Exam: See Below Free Text/Narrative:: Pt arrived with increased sob ans she is very wheezy. She felt like that she was not having good results with her nebs at home. Exam Limited By: No Limitations General Appearance: Alert, Anxious, Moderate Distress Ears: Normal TMs Nose: Normal Inspection Throat/Mouth: Normal Inspection Head: Atraumatic Neck: Normal Inspection Respiratory/Chest: Decreased Breath Sounds, Wheezing Cardiovascular: Regular Rate, Rhythm, Tachycardia GI/Abdominal: Soft, Non-Tender Rectal (Female) Exam: Deferred Back Exam: Normal Inspection Extremities: No Pedal Edema Neurological: Alert, Oriented, Normal Cognition Psychiatric: Anxious Course - Vital Signs Last Recorded V/S: Last Vital Signs Temp 36.6 C 09/23/17 14:57 Pulse 100 09/23/17 16:56 Resp 18 09/23/17 16:56 BP 165/99 H 09/23/17 16:56 Pulse Ox 94 L 09/23/17 16:56 - Orders/Labs/Meds Orders: Active Orders 24 hr Category Date Time Status RT Aerosol Therapy [RC] ASDIRECTED Care 09/23/17 16:52 Active Chest 2V [CR] Stat Exams 09/23/17 15:32 Taken Sodium Chloride 0.9% [Saline Flush] Med 09/23/17 15:32 Active 10 ml FLUSH ASDIRECTED PRN Saline Lock Insert [OM.PC] Routine Oth 09/23/17 15:32 Ordered Medication Orders Sodium Chloride (Saline Flush) 10 ml FLUSH ASDIRECTED PRN PRN Reason: Keep Vein Open Labs: Laboratory Tests 09/23/17 09/23/17 09/23/17 Range/Units 15:40 15:40 15:40 WBC 6.6 (4.5-11.0) K/uL RBC 4.50 (3.30-5.50) M/uL Hgb 13.5 (12.0-15.0) g/dL Hct 39.3 (36.0-48.0) % MCV 87 (80-98) fL MCH 30 (27-31) pg MCHC 34 (32-36) % Plt Count 156 (150-400) K/uL Neut % (Auto) 59 (36-66) % Lymph % (Auto) 24 (24-44) % Hardy % (Auto) 15 H (2-6) % Eos % (Auto) 2 (2-4) % Baso % (Auto) 0 (0-1) % Sodium 145 (140-148) mmol/L Potassium 3.8 (3.6-5.2) mmol/L Chloride 107 (100-108) mmol/L Carbon Dioxide 24 (21-32) mmol/L Anion Gap 14.2 H (5.0-14.0) mmol/L BUN 14 (7-18) mg/dL Creatinine 1.2 H (0.6-1.0) mg/dL Est Cr Clr Drug Dosing 44.92 mL/min Estimated GFR (MDRD) 45 L (>60) Glucose 97 (74-106) mg/dL Calcium 8.4 L (8.5-10.1) mg/dL Total Bilirubin 0.3 (0.2-1.0) mg/dL AST 30 D (15-37) U/L ALT 40 (12-78) U/L Alkaline Phosphatase 68 D (46-116) U/L C-Reactive Protein 1.65 H (0.0-0.3) mg/dL NT-Pro-B Natriuret Pep (5-125) pg/mL Total Protein 6.9 (6.4-8.2) g/dL Albumin 3.7 (3.4-5.0) g/dL Globulin 3.2 (2.3-3.5) g/dL Albumin/Globulin Ratio 1.2 (1.2-2.2) 09/23/17 Range/Units 16:05 WBC (4.5-11.0) K/uL RBC (3.30-5.50) M/uL Hgb (12.0-15.0) g/dL Hct (36.0-48.0) % MCV (80-98) fL MCH (27-31) pg MCHC (32-36) % Plt Count (150-400) K/uL Neut % (Auto) (36-66) % Lymph % (Auto) (24-44) % Hardy % (Auto) (2-6) % Eos % (Auto) (2-4) % Baso % (Auto) (0-1) % Sodium (140-148) mmol/L Potassium (3.6-5.2) mmol/L Chloride (100-108) mmol/L Carbon Dioxide (21-32) mmol/L Anion Gap (5.0-14.0) mmol/L BUN (7-18) mg/dL Creatinine (0.6-1.0) mg/dL Est Cr Clr Drug Dosing mL/min Estimated GFR (MDRD) (>60) Glucose (74-106) mg/dL Calcium (8.5-10.1) mg/dL Total Bilirubin (0.2-1.0) mg/dL AST (15-37) U/L ALT (12-78) U/L Alkaline Phosphatase (46-116) U/L C-Reactive Protein (0.0-0.3) mg/dL NT-Pro-B Natriuret Pep 151 H (5-125) pg/mL Total Protein (6.4-8.2) g/dL Albumin (3.4-5.0) g/dL Globulin (2.3-3.5) g/dL Albumin/Globulin Ratio (1.2-2.2) Meds: Medications Generic Name Dose Route Start Last Admin Trade Name Freq PRN Reason Stop Dose Admin Sodium Chloride 10 ml 09/23/17 15:32 Saline Flush FLUSH ASDIRECTED PRN Keep Vein Open Discontinued Medications Generic Name Dose Route Start Last Admin Trade Name Freq PRN Reason Stop Dose Admin Albuterol/Ipratropium 3 ml 09/23/17 16:51 09/23/17 16:56 Duoneb 3.0-0.5 Mg/3 Ml NEB 09/23/17 16:52 3 ml ONETIME ONE Administration Methylprednisolone Sodium Succinate 125 mg 09/23/17 15:33 09/23/17 16:10 Solu-Medrol IVPUSH 09/23/17 15:34 125 mg ONETIME ONE Administration - Re-Assessments/Exams Free Text/Narrative Re-Assessment/Exam: 09/23/17 16:55 Pt was given solumedrol and 2 nebs, one a duo neb and the other aslbuterol. Departure - Departure Time of Disposition: 16:55 Disposition: Home, Self-Care 01 Condition: Fair Clinical Impression: Bronchitis, Bronchospasm - Discharge Information Referrals: Orlando Patel SERVICE DELIVERY MANAGEMENT CONSULTANT [Primary Care Provider] - Forms: ED Department Discharge Care Plan Goals: push fluids, cool mist humidifier, predisone 10mg 3 tabs for 2 days, 2 tabs for 2 days, 1 tab for the next 4 days, zithromax 500mg now and 250 for 6 days, use the albuterol nebs every 4 hours during the waking hours, avoid smoking if possible. appt with Orlando Fry in 4-5 days, bring in all meds so they can be reviewed. - My Orders Last 24 Hours: My Active Orders 09/23/17 15:32 Chest 2V [CR] Stat Sodium Chloride 0.9% [Saline Flush] 10 ml FLUSH ASDIRECTED PRN Saline Lock Insert [OM.PC] Routine 09/23/17 16:52 RT Aerosol Therapy [RC] ASDIRECTED - Assessment/Plan Last 24 Hours: My Active Orders 09/23/17 15:32 Chest 2V [CR] Stat Sodium Chloride 0.9% [Saline Flush] 10 ml FLUSH ASDIRECTED PRN Saline Lock Insert [OM.PC] Routine 09/23/17 16:52 RT Aerosol Therapy [RC] ASDIRECTED
[2017-09-23] MEDS ORDERED: Albuterol/Ipratropium 3.0-0.5 MG/3 ML Neb Soln NEB ONE (16:51)
[2017-09-23 16:57] VITALS: BP 165/99
--- NOTE | 2017-09-24 08:35 | CR ---
CHEST: 2 view CLINICAL HISTORY:Shortness of breath COMPARISON:None FINDINGS: Heart size and pulmonary vascularity are normal. There are atherosclerotic changes in the aorta. No infiltrate effusion or pneumothorax is seen. Impression: No acute cardiopulmonary process.
== END 2017-09-23 17:21 | disposition home or self-care (01) ==
LOC: JP.ED 14:27
DX: J40 Bronchitis, not specified as acute or chronic (principal); J98.01 Acute bronchospasm; F17.210 Nicotine dependence, cigarettes, uncomplicated; I10 Essential (primary) hypertension; E78.00 Pure hypercholesterolemia, unspecified; F41.9 Anxiety disorder, unspecified; K21.9 Gastro-esophageal reflux disease without esophagitis; Z79.82 Long term (current) use of aspirin; J44.9 Chronic obstructive pulmonary disease, unspecified; Z79.899 Other long term (current) drug therapy; Z91.040 Latex allergy status; Z88.2 Allergy status to sulfonamides; Z91.09 Other allergy status, other than to drugs and biological substances; Z88.6 Allergy status to analgesic agent; Z88.5 Allergy status to narcotic agent; Z88.1 Allergy status to other antibiotic agents
CPT/HCPCS: 36415; 71046; 80053; 83880; 85025; 86140; 94640; 96374; 99285; J2930; J7620